=== PATIENT | female | born 1975 | race Caucasian/White ===

== ENCOUNTER 2020-08-11 16:20 | Outpatient (CLI) | payer BC, SELFPAY ==
--- NOTE | ~2020-08-11 | MM_ITS ---
EXAMINATION: MM screening [facility] BI w mark HISTORY: Screening mammogram TECHNIQUE: Craniocaudal and mediolateral oblique 3-D tomosynthesis images were obtained and synthetic 2-D images were generated. CAD analysis was submitted and interpreted. COMPARISON: 06/14/2019 bilateral digital screening mammogram examinations available at this time. BREAST PARENCHYMAL COMPOSITION: The breasts are almost entirely fatty. FINDINGS: There is no evidence of suspicious mass, calcification, or architectural distortion to sugg est malignancy in either breast. There has been no suspicious interval change. IMPRESSION: 1. No mammographic evidence of malignancy. 2. Recommend routine screening mammography in one year. BI-RADS Category 1: Negative Reviewed, dictated and finalized at location A. OLOGY SUPERVISOR
== END 2020-08-11 16:21 | disposition home or self-care (01) ==
LOC: ANHIMG 16:22
PROVIDERS: PCP Internal Medicine; Visit Provider Obstetrics & Gynecology
DX: Z12.31 Encounter for screening mammogram for malignant neoplasm of breast (principal)
CPT/HCPCS: 77063; 77067

== ENCOUNTER 2021-09-16 09:52 | Outpatient (CLI) | payer BC, SELFPAY ==
--- NOTE | ~2021-09-16 | MM_ITS ---
EXAMINATION: MM screening [facility] BI w mark HISTORY: Screening mammogram TECHNIQUE: Craniocaudal and mediolateral oblique 3-D tomosynthesis images were obtained and synthetic 2-D images were generated. CAD analysis was submitted and interpreted. COMPARISON: 08/11/2020, 06/14/2019, 12/12/2017 BREAST PARENCHYMAL COMPOSITION: There are scattered areas of fibroglandular density. FINDINGS: There is no evidence of suspicious mass, calcification, or architectural distortion to sugg est malignancy in either breast. There has been no suspicious interval change. IMPRESSION: 1. No mammographic evidence of malignancy. 2. Recommend routine screening mammography in one year. BI-RADS Category 1: Negative Reviewed, dictated and finalized at location A. ER
== END 2021-09-16 09:53 | disposition home or self-care (01) ==
LOC: ANHIMG 09:54
PROVIDERS: PCP Internal Medicine; Visit Provider Obstetrics & Gynecology
DX: Z12.31 Encounter for screening mammogram for malignant neoplasm of breast (principal)
CPT/HCPCS: 77063; 77067

== ENCOUNTER 2022-12-26 07:14 | Outpatient (CLI) | payer BC, SELFPAY ==
--- NOTE | ~2022-12-26 | MM_ITS ---
EXAMINATION: MM screening [facility] BI w mark HISTORY: Screening mammogram TECHNIQUE: Craniocaudal and mediolateral oblique 3-D tomosynthesis images were obtained and synthetic 2-D images were generated. CAD analysis was submitted and interpreted. COMPARISON: 09/16/2021, 08/11/2020, 06/14/2019 BREAST PARENCHYMAL COMPOSITION: The breasts are almost entirely fatty. FINDINGS: No suspicious mass, calcification, or architectural distortion are identified in either jasper ast to suggest malignancy. There has been no suspicious interval change. IMPRESSION: 1. No mammographic evidence of malignancy. 2. Recommend routine screening mammography in one year. BI-RADS Category 1: Negative Reviewed, dictated and finalized at location A.
== END 2022-12-26 07:15 | disposition home or self-care (01) ==
LOC: ANHIMG 07:17
PROVIDERS: PCP Physician Assistant Medical; Visit Provider Obstetrics & Gynecology
DX: Z12.31 Encounter for screening mammogram for malignant neoplasm of breast (principal)
CPT/HCPCS: 77063; 77067

== ENCOUNTER 2023-11-10 12:37 | Outpatient (CLI) | payer BC, SELFPAY ==
--- NOTE | ~2023-11-10 | US_ITS ---
EXAMINATION: US venous doppler [facility] DATE: 11/10/2023 14:31 INDICATION: Lower limb swelling TECHNIQUE: Grayscale ultrasound images without and with compression and Doppler ultrasound images of the left lower extremity veins were obtained. COMPARISON: None. FINDINGS: The visualized portions of left common femoral vein, profunda (deep) femoral vein, femoral vein, popl iteal vein, peroneal veins, posterior tibial veins, gastrocnemius vein and greater saphenous vein at the thigh are patent. IMPRESSION: 1. No deep venous thrombosis in the left lower limb. Reviewed, dictated and finalized at location A.
== END 2023-11-10 12:38 | disposition home or self-care (01) ==
LOC: ANHIMG 12:43
PROVIDERS: PCP Physician Assistant Medical; Visit Provider Nurse Practitioner Family
DX: M79.89 Other specified soft tissue disorders (principal); M79.605 Pain in left leg
CPT/HCPCS: 93971

== ENCOUNTER 2023-12-29 08:02 | Outpatient (CLI) | payer BC, SELFPAY ==
--- NOTE | ~2023-12-29 | MM_ITS ---
EXAMINATION: MM screening [facility] BI w mark HISTORY: Screening mammogram TECHNIQUE: Craniocaudal and mediolateral oblique 3-D tomosynthesis images were obtained and synthetic 2-D images were generated. CAD analysis was submitted and interpreted. COMPARISON: 12/26/2022, 09/16/2021, 08/11/2020, 06/14/2019 bilateral screening mammogram examinations BREAST PARENCHYMAL COMPOSITION: The breasts are almost entirely fatty. FINDINGS: There is no evidence of suspicious mass, calcification, or architectural distortion to sugg est malignancy in either breast. There has been no suspicious interval change. IMPRESSION: 1. No mammographic evidence of malignancy. 2. Recommend routine screening mammography in one year. BI-RADS Category 1: Negative Reviewed, dictated and finalized at location B.
== END 2023-12-29 08:03 | disposition home or self-care (01) ==
LOC: ANHIMG 08:05
PROVIDERS: PCP Physician Assistant Medical; Visit Provider Obstetrics & Gynecology
DX: Z12.31 Encounter for screening mammogram for malignant neoplasm of breast (principal)
CPT/HCPCS: 77063; 77067

== ENCOUNTER 2024-07-12 14:17 | Outpatient (CLI) | payer BC, SELFPAY ==
--- NOTE | ~2024-07-12 | US_ITS ---
EXAMINATION: US arterial ankle brachial ind DATE: 07/12/2024 15:06 INDICATION: Claudication. Other specified symptoms and signs involving the circulatory system. TECHNIQUE: Segmental pressures and plethysmographic and Doppler waveforms of the brachial and lower e xtremity arteries were obtained. COMPARISON: None. FINDINGS: Right and left brachial artery pressures of 139 mm Hg and 121 mm Hg, respectively, are concordant (no rmal difference <= 30 mmHg). The right ankle-brachial index (ANNMARIE) is 1.18 (normal >= 0.9-1.0). The right great toe-brachial index (TBI) is 0.71 (normal >= 0.65). Arterial Doppler waveforms demonstrate brisk systolic upstrokes at raheel th right posterior tibial and dorsalis pedis arteries. The left ANNMARIE is 1.16. The left TBI is 0.66. Arterial Doppler waveforms demonstrate brisk systolic ups trokes at both left posterior tibial and dorsalis pedis arteries. IMPRESSION: 1. No significant arterial occlusive disease with normal bilateral ABIs and TBI's Reviewed, dictated and finalized at location B. TY MANAGER IMPRESSION: 1. No significant arterial occlusive disease with normal bilateral ABIs and TBI 's
== END 2024-07-12 14:18 | disposition home or self-care (01) ==
PROVIDERS: PCP Physician Assistant Medical; Visit Provider Physician Assistant Medical
DX: R09.89 Other specified symptoms and signs involving the circulatory and respiratory systems (principal)
CPT/HCPCS: 93922

== ENCOUNTER 2025-01-01 08:16 | Outpatient (CLI) | payer BC, SELFPAY ==
--- NOTE | ~2025-01-01 | MM_ITS ---
EXAMINATION: MM screening [facility] BI w mark HISTORY: Screening TECHNIQUE: Craniocaudal and mediolateral oblique 3-D tomosynthesis images were obtained and synthetic 2-D images were generated. CAD analysis was submitted and interpreted. COMPARISON: Comparison to multiple prior studies sequentially, with oldest reviewed study dated 01/01. BREAST PARENCHYMAL COMPOSITION: Not Dense: The breasts are almost entirely fatty. FINDINGS: There is no evidence of suspicious mass, calcification, or architectural distortion to sugg est malignancy in either breast. There has been no suspicious interval change. IMPRESSION: 1. No mammographic evidence of malignancy. 2. Recommend routine screening mammography in one year. BI-RADS Category 1: Negative Reviewed, dictated and finalized at location A.
--- OUTSIDE RECORDS SUMMARY | 2025-01-01 08:30 | XMS_ITS | Referral Summary ---
Author Organization [facility] [employer] Address [address] [place] [address] Care Team Providers Care Daytime Babysitter Name Role Phone Nataliya King Primary Care Provider [phone] Allergies No known active allergies Medications oxybutynin XL (DITROPAN XL) 15 mg 24 hr tablet 2 Active ascorbic acid (vitamin C) 1,000 mg tablet Take 1 tablet (1,000 mg total) by mouth daily Active cholecalciferol (VITAMIN D-3) 25 mcg (1,000 unit) tablet Take 5 tablets (5,000 Units total) by mouth daily Active cyanocobalamin (Vitamin B-12) 500 mcg tabletIndicatio ns:Prevention of Vitamin B12 Deficiency Take 1 tablet (500 mcg total) by mouth daily Active iron bisgly,ps-FA-B- C#12-succ 65 mg-65 mg -1,000 mcg (24) tablet Take by mouth Active zinc 50 mg tablet Take by mouth Active L. gasseri-B. bifidum-B longum 1.5 billion cell capsule Take by mouth Active omeprazole (PriLOSEC) 40 mg capsule TAKE 1 CAPSULE BY MOUTH 30 MINUTES BEFORE BREAKFAST ONCE DAILY 2 Active metFORMIN XR (GLUCOPHAGE XR) 500 mg 24 hr tablet 3 Active ezetimibe (ZETIA) 10 mg tablet 4 Active fluticasone propionate (FLONASE) 50 mcg/actuation nasal sprayIndication s:Seasonal allergic rhinitis due to pollen Administer 2 sprays into each nostril daily 3 each 3 4 Active azelastine (ASTELIN) 137 mcg (0.1 %) nasal sprayIndication s:Seasonal allergic rhinitis due to pollen Administer 1 spray into each nostril 2 (two) times a day Use in each nostril as directed 90 mL 3 4 Active Active Problems Problem Noted Date Diagnosed Date Nasal dryness 03/05/2024 Hypertrophy of both inferior nasal turbinates Deviated nasal septum 03/03/2022 Seasonal allergic rhinitis due to pollen 022 Chronic pansinusitis 02/15/2022 Chronic rhinitis 02/15/2022 Social History Tobacco Use Types Packs/Day Years Used Date Smoking Tobacco: Former Cigarettes Smokeless Tobacco: Never Personal Safety Answer Date Recorded Getting School Help Needed Not on file 11/04 Comments Unknown Sex and Gender Information Value Date Recorded Sex Assigned at Not on file Legal Sex Female 1:21 PM CDT Gender Identity Not on file Sexual Orientation Not on file Last Filed Vital Signs Vital Sign Reading Time Taken Comments Blood Pressure - - Pulse - - Temperature 36.3 C (97.4 F) 02/24/2022 8:09 AM CDT Respiratory Rate 20 03/05/2024 11:52 AM CDT Oxygen Saturation - - Inhaled Oxygen Concentration - - Weight 83 kg (183 lb) 03/05/2024 11:52 AM CDT Height 152.4 cm (5') 03/05/2024 11:52 AM CDT Body Mass Index 35.74 03/05/2024 11:52 AM CDT Plan of Treatment Not on file Insurance [employer] [id number] [place] [id number] Care Teams Daytime Babysitter Relationship Specialty Start Date End Date Nataliya King PA [address] [place] [id number] PCP - General Physician Detective Bureau Chief 02/10/22
--- OUTSIDE RECORDS SUMMARY | 2025-01-01 08:30 | XMS_ITS ---
Author Organization [facility] Address [address] [facility] [address] [place] [address] Care Team Providers Care Track Subway Repair Supervisor Name Role Phone Nataliya Granger Primary Care Provider Angela PERALES MD, MIKE Luz REASON FOR VISIT EGD/Boothe's surveillance Encounters Encounter Location Date Provider Diagnosis [facility] [address] [place] [address] 09/15/2023 MIKE PERALES PLAN OF TREATMENT No Information Progress Notes * Luna JIMENEZOB: 6 (49 yo F)Acc No.[id number]:09/15/2023 Patient: Jeremy JIMENEZ Provider: Mike Perales MD, FASGE :1975 Age:47 Y Sex:Female Date:09/15/2023 Address:[address], [place], [place] Pcp:JEREMI Jorge * Images: * Sign off status: Pending * Provider: Mike Perales MD, FASGE Date: 09/15/2023
--- OUTSIDE RECORDS SUMMARY | 2025-01-01 08:30 | XMS_ITS | Clinical Summary ---
Author Organization [facility] Address [address] [place] [address] Care Team Providers Care Rn Mds Coordinator Name Role Phone Nataliya King Primary Care Provider [phone] Allergies No known active allergies Medications rosuvastatin 10 MG tablet Take 10 mg by mouth nightly at bedtime. Active hydrochlorothiazi de 12.5 MG capsule Take 12.5 mg by mouth every morning. Active oxybutynin XL 15 MG 24 hr tablet Take 15 mg by mouth daily. Active omeprazole 40 MG capsule Take 40 mg by mouth daily. Active probiotic capsule Take 1 capsule by mouth 3 (three) times daily with meals. Active Cyanocobalamin (VITAMIN B 12) 500 MCG Tab Active Ferrous Sulfate (IRON) 325 (65 Fe) MG tablet Take 325 mg by mouth daily with breakfast. Active Ascorbic Acid (VITAMIN C) 500 MG Cap Active Cholecalciferol (EQL VITAMIN D3) 125 MCG (5000 UT) Cap Active Gelatin-Mineral Combinations (NAIL STRENGTHENER/JOSE ANTONIO TIN) Cap Active Social History Tobacco Use Types Packs/Day Years Used Date Smoking Tobacco: Every Day Electronic Cigarettes Smokeless Tobacco: Never Tobacco Cessation:Ready to Q uit: No; Counseling Given: Yes Alcohol Use Standard Drinks/Week Comments Yes 0 (1 standard drink = 0.6 oz pur e alcohol) rare Comments No Sex and Gender Information Value Date Recorded Sex Assigned at Not on file Legal Sex Female 7:01 PM CDT Gender Identity Not on file Sexual Orientation Not on file Last Filed Vital Signs Vital Sign Reading Time Taken Comments Blood Pressure 125/83 08/09/2019 10:15 AM CARRY OUT CLERK AND SHELF STOCKER Pulse 72 08/09/2019 10:15 AM CARRY OUT CLERK AND SHELF STOCKER Temperature 36.6 C (97.9 F) 08/09/2019 9:45 AM CARRY OUT CLERK AND SHELF STOCKER Respiratory Rate 16 08/09/2019 10:15 AM CARRY OUT CLERK AND SHELF STOCKER Oxygen Saturation 95% 08/09/2019 10:15 AM CARRY OUT CLERK AND SHELF STOCKER Inhaled Oxygen Concentration - - Weight 88 kg (194 lb) 07/09/2020 3:00 PM CARRY OUT CLERK AND SHELF STOCKER Height 152.4 cm (5') 07/09/2020 3:00 PM CARRY OUT CLERK AND SHELF STOCKER Body Mass Index 37.89 07/09/2020 3:00 PM CARRY OUT CLERK AND SHELF STOCKER Plan of Treatment Health Maintenance Due Date Last Done Comments Cervical Cancer Screening Pap Smear (Age 30 to 64) Every 3 Years 1975 Annual Physical 11/24/1978 Hepatitis C 11/24/1993 DTaP, Tdap and Td Vaccines (1 - Tdap) 11/24/1994 Hepatitis B Vaccines (1 of 3 - 19+ 3-dose series) 11/24/1994 Pneumococcal Vaccine: Pediatrics (0 to 5 Years) and At-Risk Patients (6 to 49 Years) (1 of 2 - PCV) 11/24/1994 Cervical Cancer Screening Pap with HPV Testing (Age 30 to 64) Every 5 Years 11/24/2005 Cervical Cancer Screening with HPV 11/24/2005 Mammogram Screening 2015 COVID-19 Vaccine ( season) 2024 08/03/2022, 03/04/2022, 07/01/2021, Additional history exists Colorectal Cancer Screening Colonoscopy (10 Years) 08/09/2029 08/09/2019, 08/09/2019 Meningococcal B Vaccine Aged Out No l onger eligible based on patient's age to complete this topic Meningococcal Vaccine Aged Out No quentin armin eligible based on patient's age to complete this topic RSV Immunizations Under 20 Months Aged Out No longer eligible based on patient's age to complete this topic Procedures Procedure Name Priority Date/Time Associated Diagnosis Comments COLONOSCOPY Routine 08/09/2019 7:12 AM CARRY OUT CLERK AND SHELF STOCKER from Last 3 Months or Most Recently Relevant to Health Maintenance Insurance Care Teams Rn Mds Coordinator Relationship Specialty Start Date End Date Nataliya King PA PCP - General PHYSICIAN MASTER ELECTRICIAN 06/20/19
--- OUTSIDE RECORDS SUMMARY | 2025-01-01 08:30 | XMS_ITS | Patient Health Record ---
Author Organization [facility] Address [address] [place], [place] [address] Care Team Providers Care Turnaround Planner Name Role Phone MELVIN HENRIQUEZ Unavailable [phone] Tucker Nader Unavailable Unavailable Allergies Allergen (clinical drug ingredient) Drug/Non Drug Allergy documented on EMR Reaction Allergy Type Onset Date Status lisinopril Lisinopril Unknown Drug Allergy Activ e Pollen Pollen Unknown Allergy 01/09/2017 active Reason For Referral No Information Medications Medication SIG (Take, Route, Frequency, Duration) Notes Start Date End Date Status Meloxicam 15 MG Take 1 tablet by mouth once daily for 30 Active Medrol Dosepak ORAL Medrol DosepakOr iginal MedicationMedrol Dosepak *Reorder from [employer] for eRx and Interaction Alerts* 04/26/2019 Active Medrol 4 MG as directed Orally 02/17/2023 Active Plan Of Treatment No Information Insurance Providers Payer Name Payer Address Payer Phone Subscriber Number Group Number Insured Name Patient Relationship to Insured Coverage Start Date Coverage End Date [facility] ([facility] ATTN CLAIMS [address] [place] [address] [id number] DARA MOELLER Self - patient is the insured Medical (General) History Medical History History ICD Code Leg/Feet cramps Surgical History Surgery Date(Month/Year) Wrist surgery Elbow surgery
--- OUTSIDE RECORDS SUMMARY | 2025-01-01 08:31 | XMS_ITS | Patient Health Record ---
Author Organization [facility] Address [address] [place] [address] Care Team Providers Care Book Editor Name Role Phone Nataliya Granger Primary Care Provider Angela PERALES MD, DOLLY Unavailable ALLERGIES Allergen (clinical drug ingredient) Drug/Non Drug Allergy documented on EMR Reaction Allergy Type Onset Date Status lisinopril Lisinopril lip pealing Drug Allergy A ctive REASON FOR REFERRAL No Information MEDICATIONS Medication SIG (Take, Route, Frequency, Duration) Notes Start Date End Date Status oxyBUTYnin Chloride ER 15 MG 1 tablet Or ally Once a day Active Probiotic Active Vitamin C 500 MG 1 tablet Orally Once a day Active Vitamin B12 500 MCG 1 tablet Orally Once a day Active Iron 325 (65 Fe) MG 1 tablet Orally Once a day Active Vitamin D3 Active Omeprazole 40 MG TAKE 1 CAPSULE BY [facility] 30 MINUTES BEFORE BREAKFAST ONCE DAILY for 90 days Active Rosuvastatin Calcium 10 MG 1 tablet Oral ly Once a day Active hydroCHLOROthiazide 12.5 MG 1 tablet in the morning Orally Once a day Active SOCIAL HISTORY Tobacco Use: Social History Observation Description Date Details (start date - stop date) Unknown Sex Assigned At : Social History Observation Description Sex Assigned At Unknown Tobacco Use/Smoking Question Answer Notes Are you a Uses tobacco in other forms Tobacco use other than smoking: Question Answer Notes Are you an other tobacco user? Yes V ape for past 8 months PROBLEMS Problem Type ICD Code Onset Dates Problem Status W/U Status Risk SNOMED Code Notes Problem Dysphagia, unspecified (R13.10) Active confirmed Dysphagia (65638185) PLAN OF TREATMENT No Information Insurance Providers Payer Name Payer Address Payer Phone Subscriber Number Group Number Insured Name Patient Relationship to Insured Coverage Start Date Coverage End Date [place] [address] [place], [place] [id number] Jeremy Jimenez Self - patient is the insured MEDICAL (GENERAL) HISTORY Medical History History ICD Code Hypercholesterolemia Arthritis Hypertension Obesity Surgical History Surgery Date(Month/Year) Wrist surgery Cyst removed from elbow Colon/EGD Radha 08/09/19
--- OUTSIDE RECORDS SUMMARY | 2025-01-01 08:31 | XMS_ITS | Clinical Summary ---
Author Organization [facility] [employer] Address [address] [place] [address] Care Team Providers Care Raw Material Handler Name Role Phone Nataliya King Primary Care Provider [phone] Allergies No known active allergies Medications oxybutynin [...] 022 Chronic pansinusitis 02/15/2022 Chronic rhinitis 02/15/2022 Surgical History Surgery Date Site/Laterality Comments LASIK Medical History Medical History Date Comments Allergic rhinitis Diabetes (HCC) Hypertension Family History Medical History Relation Name Comments No Known Problems Father No Known Problems Mother Relation Name Status Comments Father Mother Social History Tobacco Use Types Packs/Day Years Used Date Smoking Tobacco: Former Cigarettes Smokeless Tobacco: Never Personal Safety Answer Date Recorded Getting School Help Needed Not on file 11/04 Comments Unknown Sex and Gender Information Value Date Recorded Sex Assigned at Not on file Legal Sex Female 1:21 PM CDT Gender Identity Not on file Sexual Orientation Not on file Obstetrics History Last Filed Vital Signs Vital Sign Reading [...] 03/05/2024 11:52 AM CDT Plan of Treatment Health Maintenance Due Date Last Done Comments Breast Cancer Screening-Mammogram 1975 Cervical Cancer Screening 1975 Colon Cancer Screening-Colonoscopy 1975 Depression Screening 1975 Hepatitis C Screening 1975 DTaP/Tdap/Td Vaccine (1 - Tdap) 11/24/1986 Hepatitis B Screening 11/24/1993 Regular Well Visit/Exam 18-64 11/24/1993 Covid-19 Vaccine (2023-2 5 season) 2024 07/01/2021, 11/05/2020, 10/15/2020 Influenza Vaccine (Season Ended) 2025 Pneumococcal vaccine <65 Aged Out No longer eligible based on patient's age to complete this topic Insurance [facility] ACCESS Care Teams Raw Material Handler Relationship Specialty Start Date End Date Nataliya King PA [address] [place] [id number] PCP - General Physician Courtesy Car Driver 02/10/22
== END 2025-01-01 08:17 | disposition home or self-care (01) ==
LOC: ANHIMG 08:19
PROVIDERS: PCP Physician Assistant Medical; Visit Provider Obstetrics & Gynecology
DX: Z12.31 Encounter for screening mammogram for malignant neoplasm of breast (principal)
CPT/HCPCS: 77063; 77067